=== PATIENT | female | born 2000 | race Caucasian/White ===

== ENCOUNTER 2022-08-27 16:03 | Emergency (ER) | payer BC ==
[~2022-08-27] VITALS: Ht 165.1 cm; Wt 109.1 kg
[2022-08-27 16:07] VITALS: TEMP 97.7
[2022-08-27] MEDS ORDERED: DOXYCYCLINE 10100 MG PO (16:47)
[2022-08-27 16:56] VITALS: BP 139/73; PULSE 79
== END 2022-08-27 16:58 | disposition home or self-care (01) ==
LOC: COL.ER 16:03
DX: N61.1 Abscess of the breast and nipple (principal); Z28.310 Unvaccinated for COVID-19